=== PATIENT | male | born 1990 | race African-American/Black ===

== ENCOUNTER 2018-03-29 18:18 | Emergency (ER) | payer OTHER ==
[2018-03-29 18:37] VITALS: TEMP 98.1
--- NOTE | 2018-03-29 20:04 | ED ---
General Adult HPI - General Chief complaint: GI Bleed Stated complaint: Blood in Stool Time Seen by Provider: 03/29/18 19:33 Source: patient, RN notes reviewed, old records reviewed Mode of arrival: ambulatory Limitations: no limitations - History of Present Illness Initial comments: This is a 27-year-old male the ER for evaluation. Patient has some blood in stool, but started. Patient also states he has some type of lump to the anterior groin, pubic area. No medical history takes no medications no fevers no dysuria. Patient has no other complaints - Related Data Previous Rx's Medication Instructions Recorded HYDROcodone/APAP 5-325MG [[place] 1 tab PO Q6HR PRN #15 tab 09/05/16 5-325] Ibuprofen [Motrin] 600 mg PO Q6HR PRN #30 tab 09/05/16 Sulfamethox-Tmp 800-160Mg [Bactrim 2 each PO Q12HR #56 tab 09/05/16 Ds] Hydrocortisone [Anusol-Hc] 1 applic RECTAL BID #1 tube 03/29/18 Polyethylene Glycol 3350 [Miralax] 17 gm PO DAILY #30 packet 03/29/18 Allergies Allergy/AdvReac Type Severity Reaction Status Date / Time No Known Allergies Allergy Verified 03/29/18 18:37 Review of Systems ROS Statement: Those systems with pertinent positive or pertinent negative responses have been documented in the HPI. ROS Other: All systems not noted in ROS Statement are negative. Past Medical History Past Medical History: No Reported History History of Any Multi-Drug Resistant Organisms: MRSA Date of last positivie culture/infection: 09/05/16 MDRO Source:: FACE Past Surgical History: No Surgical Hx Reported Past Psychological History: Anxiety Smoking Status: Current every day smoker Past Alcohol Use History: None Reported Past Drug Use History: Marijuana General Exam - General Exam Comments Initial Comments: Patient is to hemorrhoids at 6) 3:00 with bleeding, external, no thrombosis Limitations: no limitations General appearance: alert, in no apparent distress Head exam: Present: atraumatic, normocephalic, normal inspection Eye exam: Present: normal appearance, PERRL, EOMI. Absent: scleral icterus, conjunctival injection, periorbital swelling ENT exam: Present: normal exam, mucous membranes moist Neck exam: Present: normal inspection. Absent: tenderness, meningismus, lymphadenopathy Respiratory exam: Present: normal lung sounds bilaterally. Absent: respiratory distress, wheezes, rales, rhonchi, stridor Cardiovascular Exam: Present: regular rate, normal rhythm, normal heart sounds. Absent: systolic murmur, diastolic murmur, rubs, gallop, clicks GI/Abdominal exam: Present: soft, normal bowel sounds. Absent: distended, tenderness, guarding, rebound, rigid Extremities exam: Present: normal inspection, full ROM, normal capillary refill. Absent: tenderness, pedal edema, joint swelling, calf tenderness Back exam: Present: normal inspection Neurological exam: Present: alert, oriented X3, CN II-XII intact Psychiatric exam: Present: normal affect, normal mood Skin exam: Present: warm, dry, intact, normal color. Absent: rash Course Vital Signs 03/29/18 18:35 Temperature 98.1 F Pulse Rate 69 Respiratory 18 Rate Blood Pressure 133/76 O2 Sat by Pulse 100 Oximetry - Reevaluation(s) Reevaluation #1: 03/29/18 20:03 Patient given instructions regarding hemorrhoidal care Medical Decision Making - Medical Decision Making 27 male the ER for evaluation for blood in stool, patient does have hemorrhoids on exam, we'll give fall with Gen. surgery for evaluation of hemorrhoids. Patient also appears to have some type of sebaceous cyst versus lipoma on the anterior aspect of his groin. No evidence of infection. Patient will also surgical evaluation of his outpatient Disposition Clinical Impression: Hemorrhoids, Gastrointestinal hemorrhage Disposition: ADMITTED IP TO THIS HOSP Condition: Fair Instructions: Hemorrhoids (ED) Prescriptions: Hydrocortisone [Anusol-Hc] 1 applic RECTAL BID #1 tube Polyethylene Glycol 3350 [Miralax] 17 gm PO DAILY #30 packet Is patient prescribed a controlled substance at d/c from ED?: No Referrals: None,Stated [Primary Care Provider] - 1-2 days
[2018-03-29 20:26] VITALS: BP 123/56; PULSE 68; RESP 20
== END 2018-03-29 20:26 | disposition other institution (70) ==
LOC: EC 18:18
DX: K92.2 Gastrointestinal hemorrhage, unspecified (principal); K64.9 Unspecified hemorrhoids; F17.200 Nicotine dependence, unspecified, uncomplicated; Z86.14 Personal history of Methicillin resistant Staphylococcus aureus infection
CPT/HCPCS: 99285

== ENCOUNTER 2021-12-25 15:15 | Emergency (ER) | payer OTHER ==
[2021-12-25 15:31] VITALS: RESP 18
[2021-12-25] MEDS ORDERED: predniSONE 50 MG TAB PO STA (15:53)
--- NOTE | 2021-12-25 15:57 | ED ---
ENT HPI - General Source: patient, RN notes reviewed Mode of arrival: ambulatory Limitations: no limitations - History of Present Illness MD complaint: tooth pain, sore throat Context- Dental: history of dental caries <Kailyn Hayes - Last Filed: 12/25/21 18:53> <Cristine Rodriguez Orlando - Last Filed: 12/26/21 21:48> - General Chief complaint: ENT Stated complaint: Sore lymphnodes, Canker sore Time Seen by Provider: 12/25/21 15:35 - History of Present Illness Initial comments: This is a 31-year-old male who presents to the emergency department for left sided throat pain. Patient states that when he woke up this morning, his throat was on fire. Denies any difficulty or pain with swallowing or eating. He does not have any changes in his voice. Denies any fevers/chills, coughing, congestion, or sick contacts. He has been taking ibuprofen and Tylenol with no relief. He has also started to develop a painful left cervical lymph node. He does have dental carries with associated tooth pain on the left. He does not currently have a dentist. (Kailyn Hayes) - Related Data Home Medications Medication Instructions Recorded Confirmed Ibuprofen [Advil] 400 mg PO Q8HR PRN 03/29/18 03/29/18 Naproxen Sodium [Aleve] 220 mg PO BID PRN 03/29/18 03/29/18 Previous Rx's Medication Instructions Recorded Hydrocortisone [Anusol-Hc] 1 applic RECTAL BID #1 tube 03/29/18 polyethylene glycoL 3350 [Miralax] 17 gm PO DAILY #30 packet 03/29/18 Amoxicillin 875 mg PO Q12HR 5 Days #10 tablet 12/25/21 predniSONE 50 mg PO DAILY 5 Days #5 tab 12/25/21 Allergies Allergy/AdvReac Type Severity Reaction Status Date / Time No Known Allergies Allergy Verified 12/25/21 15:27 Review of Systems ROS Other: All systems not noted in ROS Statement are negative. Constitutional: Denies: fever, chills ENT: Reports: throat pain, dental pain. Denies: congestion Respiratory: Denies: cough, dyspnea Cardiovascular: Denies: chest pain Gastrointestinal: Denies: abdominal pain, nausea, vomiting, diarrhea Genitourinary: Denies: urgency, dysuria Musculoskeletal: Denies: back pain Skin: Denies: rash Neurological: Denies: headache <Kailyn Hayes - Last Filed: 12/25/21 18:53> ROS Other: All systems not noted in ROS Statement are negative. <Cristine Rodriguez - Last Filed: 12/26/21 21:48> ROS Statement: Those systems with pertinent positive or pertinent negative responses have been documented in the HPI. Past Medical History Past Medical History: No Reported History History of Any Multi-Drug Resistant Organisms: MRSA Date of last positivie culture/infection: 09/05/16 MDRO Source:: FACE Past Surgical History: No Surgical Hx Reported Past Psychological History: No Psychological Hx Reported Smoking Status: Former smoker Past Alcohol Use History: None Reported Past Drug Use History: Marijuana <Kailyn Hayes - Last Filed: 12/25/21 18:53> General Exam Limitations: no limitations General appearance: alert, in no apparent distress Head exam: Present: atraumatic, normocephalic, normal inspection Expanded Teeth exam: Present: dental caries, gingival enlargement (primarily on the left, with teeth causing irritation to the gums) Throat exam: other (Mild pharyngeal erythema). negative: tonsillomegaly, tonsillar exudate, R peritonsillar mass, L peritonsillar mass Neck exam: Present: normal inspection, tenderness (left anterior neck), lymphadenopathy (mild left sided anterior cervical lymphadenopathy). Absent: meningismus Respiratory exam: Present: normal lung sounds bilaterally. Absent: respiratory distress, wheezes, rales, rhonchi, stridor Cardiovascular Exam: Present: regular rate, normal rhythm, normal heart sounds. Absent: systolic murmur, diastolic murmur, rubs, gallop, clicks Neurological exam: Present: alert, oriented X3, CN II-XII intact Psychiatric exam: Present: normal affect, normal mood Skin exam: Present: warm, dry, intact, normal color. Absent: rash <Kailyn Hayes - Last Filed: 12/25/21 18:53> Course Vital Signs 12/25/21 12/25/21 15:28 17:35 Temperature 97.9 F 97.8 F Pulse Rate 61 64 Respiratory 18 18 Rate Blood Pressure 145/86 140/77 O2 Sat by Pulse 100 98 Oximetry Medical Decision Making <Kailyn Hayes - Last Filed: 12/25/21 18:53> <Cristine Rodriguez - Last Filed: 12/26/21 21:48> - Medical Decision Making This is a 31-year-old male who presents to the emergency department for pain on the left side of the throat. Rapid strep test negative. Based on the area the patient is pointing to, upon examination it appears that the patient has dental caries that have caused irritation and areas of swelling in the mouth. While the areas of pain are in the mouth, the areas that the patient is complaining of in particular and the areas of noted irritation, are around the left upper molars. Given the gingival enlargement and erythema, there is concern for developing infection. Will give the patient a 5 day course of amoxicillin. Will also start the patient on 5 days of prednisone for pain and inflammation. He is instructed to avoid taking ibuprofen or any other anti-inflammatories with the prednisone. He can take Tylenol with this. Starter pack for Tylenol with Codeine provided. Patient is instructed to find a dentist and follow-up as soon as possible. Return precautions reviewed in depth, the patient is instructed to return to the emergency department with any new, worsening, or concerning symptoms. Patient verbalized understanding. This case was discussed in detail with the attending ED physician. Presentation, findings, and treatment plan discussed in detail as well. (Kailyn Hayes) I was available for consultation in the emergency department. The history and physical exam were done by the midlevel provider. I was consulted for this patients care. I reviewed the case with the midlevel provider and based on their presentation of the patient, I agree with the assessment, medical decision making and plan of care as documented. Chart was dictated using [employer]ling[employer] dictation software. Attempts were made to correct any dictation errors however some typographical errors may persist. (Cristine Rodriguez) - Lab Data Lab Results 12/25/21 Range/Units 16:44 Group A Strep Rapid Negative (Negative) Disposition Is patient prescribed a controlled substance at d/c from ED?: No <Kailyn Hayes - Last Filed: 12/25/21 18:53> <Cristine Rodriguez - Last Filed: 12/26/21 21:48> Clinical Impression: Cervical lymphadenitis, Erythema of pharynx Disposition: HOME SELF-CARE Instructions (If sedation given, give patient instructions): Lymphadenopathy (ED) Additional Instructions: Return to the emergency department with any new, worsening, or concerning symptoms. Take the antibiotic as prescribed for 5 days. Do not take the prednisone with any other anti-inflammatories, such as ibuprofen. You can take this with Tylenol. Take the Tylenol #3 at night until you know how it affects you. Make an appointment with a dentist as soon as you are able to. Prescriptions: Amoxicillin 875 mg PO Q12HR 5 Days #10 tablet predniSONE 50 mg PO DAILY 5 Days #5 tab Referrals: None,Stated [Primary Care Provider] - 1-2 days
[2021-12-25] MEDS ORDERED: ACET/COD 300 MG/30 MG STARTER PACK 6 TAB BTL PO STA (17:12)
[2021-12-25 17:36] VITALS: BP 140/77; PULSE 64; TEMP 97.8
== END 2021-12-25 17:35 | disposition home or self-care (01) ==
LOC: EC 15:15
DX: I88.9 Nonspecific lymphadenitis, unspecified (principal); L53.9 Erythematous condition, unspecified; Z87.891 Personal history of nicotine dependence
CPT/HCPCS: 87081; 87430; 99283; J7512

== ENCOUNTER 2023-02-05 11:34 | Emergency (ER) | payer OTHER ==
[2023-02-05 12:10] VITALS: RESP 18
[2023-02-05] MEDS ORDERED: cefTRIAXone 250 MG VIAL IM STA (12:39)
[2023-02-05] MEDS ORDERED: AZITHROMYCIN 500 MG TAB PO STA (12:40)
--- NOTE | 2023-02-05 12:45 | ED ---
General Adult HPI - General Chief complaint: Recheck/Abnormal Lab/Rx Stated complaint: Pain in Abd Time Seen by Provider: 02/05/23 12:14 Source: patient, RN notes reviewed, old records reviewed Mode of arrival: ambulatory Limitations: no limitations - History of Present Illness Initial comments: 32-year-old male with concern for STD. Patient has an irritation on the side of his penis. He was informed that one of his sexual partners had herpes and he was concerned. He denies any drainage, no dysuria or hematuria. No penile lesions. - Related Data Home Medications Medication Instructions Recorded Confirmed Ibuprofen [Advil] 400 mg PO Q8HR PRN 03/29/18 03/29/18 Naproxen Sodium [Aleve] 220 mg PO BID PRN 03/29/18 03/29/18 Previous Rx's Medication Instructions Recorded Hydrocortisone [Anusol-Hc] 1 applic RECTAL BID #1 tube 03/29/18 polyethylene glycoL 3350 [Miralax] 17 gm PO DAILY #30 packet 03/29/18 Amoxicillin 875 mg PO Q12HR 5 Days #10 tablet 12/25/21 predniSONE 50 mg PO DAILY 5 Days #5 tab 12/25/21 Allergies Allergy/AdvReac Type Severity Reaction Status Date / Time No Known Allergies Allergy Verified 02/05/23 12:10 Review of Systems ROS Statement: Those systems with pertinent positive or pertinent negative responses have been documented in the HPI. ROS Other: All systems not noted in ROS Statement are negative. Past Medical History Past Medical History: No Reported History History of Any Multi-Drug Resistant Organisms: MRSA Date of last positivie culture/infection: 09/05/16 MDRO Source:: FACE Past Surgical History: No Surgical Hx Reported Past Psychological History: No Psychological Hx Reported Smoking Status: Current every day smoker Past Alcohol Use History: None Reported Past Drug Use History: Marijuana General Exam Limitations: no limitations General appearance: alert, in no apparent distress Head exam: Present: atraumatic, normocephalic Eye exam: Present: normal appearance, PERRL ENT exam: Present: normal exam Neck exam: Present: normal inspection Respiratory exam: Present: normal lung sounds bilaterally. Absent: respiratory distress Cardiovascular Exam: Present: regular rate, normal rhythm GI/Abdominal exam: Present: soft. Absent: distended, tenderness exam: Present: normal inspection, circumcision, other (No erythema, no lesions). Absent: urethral discharge Course Vital Signs 02/05/23 12:08 Temperature 98 F Pulse Rate 66 Respiratory 18 Rate Blood Pressure 129/87 O2 Sat by Pulse 99 Oximetry Medical Decision Making - Medical Decision Making Was pt. sent in by a medical professional or institution (FELY Mccabe, FIELD INSPECTOR, urgent care, hospital, or half-way...) When possible be specific @ -No Did you speak to anyone other than the patient for history (EMS, parent, family, police, friend...)? What history was obtained from this source @ -No Did you review nursing and triage notes (agree or disagree)? Why? @ -I reviewed and agree with nursing and triage notes Were old charts reviewed (outside hosp., previous admission, EMS record, old EKG, old radiological studies, urgent care reports/EKG's, half-way records)? Report findings @ -No old charts were reviewed Differential Diagnosis (chest pain, altered mental status, abdominal pain women, abdominal pain men, vaginal bleeding, weakness, fever, dyspnea, syncope, headache, dizziness, GI bleed, back pain, seizure, CVA, palpatations, mental health, musculoskeletal)? @Gonorrhea, Chlamydia, herpes EKG interpreted by me (3pts min.). @ -As above X-rays interpreted by me (1pt min.). @ -None done CT interpreted by me (1pt min.). @ -None done U/S interpreted by me (1pt. min.). @ -None done What testing was considered but not performed or refused? (CT, X-rays, U/S, labs)? Why? @ -None What meds were considered but not given or refused? Why? @ -None Did you discuss the management of the patient with other professionals (professionals i.e. FELY Mccabe, FIELD INSPECTOR, lab, RT, psych nurse, psychiatric social worker supervisor, injection molding machine offbearer, teacher, loan officer, family caseworker)? Give summary @ -No Was smoking cessation discussed for >3mins.? @ -No Was critical care preformed (if so, how long)? @ -No Were there social determinants of health that impacted care today? How? (Homelessness, low income, unemployed, alcoholism, drug addiction, transportation, low edu. Level, literacy, decrease access to med. care, half-way, rehab)? @ -No Was there de-escalation of care discussed even if they declined (Discuss DNR or withdrawal of care, Hospice)? DNR status @ -No What co-morbidities impacted this encounter? (DM, HTN, Smoking, COPD, CAD, Cancer, CVA, ARF, Chemo, Hep., AIDS, mental health diagnosis, sleep apnea, morbid obesity)? @ -None Was patient admitted / discharged? Hospital course, mention meds given and route, prescriptions, significant lab abnormalities, going to OR and other pertinent info. @32-year-old male. There is no visual lesions on the penis. He has not had any drainage. I did offer treatment for gonorrhea and chlamydia prophylaxis and the patient agrees. He is informed that he should follow with his primary care physician or the health department for further STD testing and that he is not being tested for any STDs today and he is only being treated for gonorrhea and chlamydia. Patient is agreeable. Undiagnosed new problem with uncertain prognosis? @ -No Drug Therapy requiring intensive monitoring for toxicity (Heparin, Nitro, Insulin, Cardizem)? @ -No Were any procedures done? @ -No Diagnosis/symptom? @STD prophylaxis Acute, or Chronic, or Acute on Chronic? @Acute Uncomplicated (without systemic symptoms) or Complicated (systemic symptoms)? @Uncomplicated Side effects of treatment? @ -No Exacerbation, Progression, or Severe Exacerbation? @ -No Poses a threat to life or bodily function? How? (Chest pain, [place], [place], pneumonia, PE, COPD, DKA, ARF, appy, cholecystitis, CVA, Diverticulitis, Homicidal, Suicidal, threat to staff... and all critical care pts) @ -No Disposition Clinical Impression: Possible exposure to STD Disposition: HOME SELF-CARE Condition: Good Instructions (If sedation given, give patient instructions): Sexually Transmitted Diseases (ED) Additional Instructions: Please abstain from all sexual contact until you have received testing by either your primary care physician or the health department. Is patient prescribed a controlled substance at d/c from ED?: No Referrals: None,Stated [Primary Care Provider] - 1-2 days Suzanne Camarillo MD [REFERRING] - 1-2 days Health Department,[facility] [NON-STAFF] - 1-2 days Time of Disposition: 12:45
[2023-02-05 13:19] VITALS: BP 143/75; PULSE 61; TEMP 97.9
== END 2023-02-05 13:19 | disposition home or self-care (01) ==
LOC: EC 11:34
DX: Z20.2 Contact with and (suspected) exposure to infections with a predominantly sexual mode of transmission (principal); F17.200 Nicotine dependence, unspecified, uncomplicated; F12.90 Cannabis use, unspecified, uncomplicated
CPT/HCPCS: 99283; 96372; J0696

== ENCOUNTER → 2023-04-16 | Outpatient (CLI) | payer OTHER ==
[2023-04-16 21:24] LABS: Basophils # (A) 0.04 X 10*3/uL (0.00-0.10); Basophils % (A) 0.7 %; Eosinophils # (A) 0.09 X 10*3/uL (0.04-0.35); Eosinophils % (A) 1.6 %; HCT 49.8 % (39.6-50.0); HGB 16.5 d/dL (12.0-15.0); Lymphocytes # (A) 2.17 X 10*3/uL (0.90-5.00); Lymphocytes % (A) 37.9 %; MCH 31.7 pg (27.0-32.0); MCHC 33.1 d/dL (32.0-37.0); MCV 95.8 FL (80.0-97.0); Mean Platelet Volume 10.1 FL (9.5-12.2); Monocytes # (A) 0.46 X 10*3/uL (0.20-1.00); NRBC Per 100 WBC 0 X 10*3/uL (0.00-0.01); Neutrophils # (A) 2.95 X 10*3/uL (1.80-7.70); Neutrophils % (A) 51.5 %; Platelet Count 278 X 10*3/uL (140-440); RDW 12.7 % (11.5-14.5); WBC 5.73 X 10*3/uL (4.50-10.00)
[2023-04-16 21:59] LABS: ALT 18 U/L (10-49); AST 25 U/L (14-35); Albumin 5.4 d/dL (3.8-4.9); Albumin/Globulin Ratio 2.45 Ratio (1.60-3.17); Alkaline Phosphatase 64 U/L (41-126); BUN/Creat Ratio 12.64 Ratio (12.00-20.00); Blood Urea Nitrogen 13.9 mg/dL (9.0-27.0); Calcium 10.8 mg/dL (8.7-10.3); Carbon Dioxide 25.8 mmol/L (21.6-31.8); Chloride 101 mmol/L (96-109); Chol/HDL Ratio 2.91 Ratio; Globulin 2.2 d/dL (1.6-3.3); Glucose 80 mg/dL (70-110); LDL Cholesterol,Calculated 80.1 mg/dL (0.0-131.0); Lipase 23 U/L (14-60); Magnesium 2.1 mg/dL (1.5-2.4); Potassium 4.3 mmol/L (3.5-5.5); Sodium 139 mmol/L (135-145); Total Bilirubin 0.8 mg/dL (0.3-1.2); Total Protein 7.6 d/dL (6.2-8.2); VLDL Calculation 14.54 mg/dL (5.00-40.00)
== END | disposition home or self-care (01) ==
LOC: LABWHC1 14:44
PROVIDERS: ATTEND Internal Medicine
DX: Z11.59 Encounter for screening for other viral diseases (principal); K21.9 Gastro-esophageal reflux disease without esophagitis
CPT/HCPCS: 36415; 80053; 80061; 83690; 83735; 84443; 85025; 86803